=== PATIENT | male | born 1980 | race African-American/Black ===

== ENCOUNTER 2021-05-13 15:28 | Inpatient (IN) | payer MEDICARE, MEDICAID ==
[~2021-05-13] VITALS: Ht 185.4 cm; Wt 103.0 kg
[2021-05-13 16:23] LABS: BASOPHILS % 0.5 % (0.0-2.0); EOSINOPHILS % 3.1 % (0.0-5.0); HEMATOCRIT. 39.4 % (42.0-52.0); HEMOGLOBIN. 13.2 g/dL (14.0-18.0); LYMPHOCYTES % 18.4 % (20.0-50.0); MEAN CORPUSCULAR HEMOGLOBIN 28.2 pg (28.0-32.0); MEAN PLATELET VOLUME 9.1 fl (7.4-10.4); PLATELET 267 x1000/uL (130-400); RED BLOOD CELL COUNT 4.69 mill/uL (4.7-6.1); RED CELL DISTRIBUTION WIDTH 13.7 % (11.6-14.6)
[2021-05-13 16:28] LABS: CHLORIDE 100 mEq/L (98-107)
[2021-05-13] MEDS ORDERED: ASPIRIN 81MG TABLET PO NR (18:15)
[2021-05-13] MEDS ORDERED: INSULIN GLARGINE UD 100 UNITS/ML SYR SUBCUT NR (19:00)
[2021-05-13 21:10] VITALS: BP 146/104
[2021-05-13] MEDS ORDERED: DEXTROSE 50% WATER 50ML SYRINGE IV PRN (22:15)
[2021-05-13] MEDS ORDERED: MAGNESIUM/ALUMINUM HYDROXIDE/SIMETHICONE 30ML UDC PO PRN (22:15)
[2021-05-13] MEDS ORDERED: ACETAMINOPHEN 325MG TABLET PO PRN (22:15)
[2021-05-13] MEDS ORDERED: ONDANSETRON HCL 4MG/2ML INJ IV PRN (22:15)
[2021-05-13] MEDS ORDERED: CLONIDINE 0.1MG TABLET PO PRN (22:15)
[2021-05-13] MEDS ORDERED: GUAIFENESIN 200MG/10ML SUGAR FREE UDC PO PRN (22:15)
[2021-05-13 22:28] VITALS: BP 146/104
[2021-05-14] VITALS: BP 159/97
[2021-05-14] MEDS ORDERED: SODIUM CHLORIDE 0.9% INJ 3ML FLUSH IVF SCH (06:00)
[2021-05-14] MEDS: BLOOD SUGAR DIAGNOSTIC STRIP TEST SCH ×4 (06:17→21:36)
[2021-05-14] MEDS ORDERED: METFORMIN HCL 500MG TABLET PO SCH (07:50)
[2021-05-14] MEDS: INSULIN LISPRO 100 UNITS/ML SUBCUT SCH ×4 (07:50→21:36)
[2021-05-14 08:00] VITALS: BP 154/90
[2021-05-14] MEDS: INSULIN GLARGINE UD 100 UNITS/ML SYR SUBCUT SCH ×2 (10:00→21:35)
[2021-05-14] MEDS: ASPIRIN 325MG EC TABLET PO SCH (11:58)
[2021-05-14] MEDS: LISINOPRIL 40MG TABLET PO SCH (11:59)
[2021-05-14] MEDS: AMLODIPINE 10MG TABLET PO SCH (11:59)
[2021-05-14] MEDS: ATORVASTATIN CALCIUM 40MG TABLET PO SCH (21:35)
[2021-05-15 04:00] VITALS: BP 167/109
[2021-05-15] MEDS: CLONIDINE 0.1MG TABLET PO PRN ×2 (04:34→21:49)
[2021-05-15] MEDS: ACETAMINOPHEN 325MG TABLET PO PRN ×2 (04:35→17:21)
[2021-05-15] MEDS: BLOOD SUGAR DIAGNOSTIC STRIP TEST SCH ×4 (06:28→20:22)
[2021-05-15] MEDS: INSULIN LISPRO 100 UNITS/ML SUBCUT SCH ×4 (07:50→21:50)
[2021-05-15] MEDS: ASPIRIN 325MG EC TABLET PO SCH (09:27)
[2021-05-15] MEDS: AMLODIPINE 10MG TABLET PO SCH (09:28)
[2021-05-15] MEDS: LISINOPRIL 40MG TABLET PO SCH (09:28)
[2021-05-15] MEDS: INSULIN GLARGINE UD 100 UNITS/ML SYR SUBCUT SCH ×2 (10:00→21:50)
[2021-05-15 12:00] VITALS: BP 152/74
[2021-05-15 16:00] VITALS: BP 155/76
[2021-05-15 20:00] VITALS: BP 165/72
[2021-05-15] MEDS ORDERED: RISPERIDONE 1MG TABLET PO SCH (21:00)
[2021-05-15] MEDS: ATORVASTATIN CALCIUM 40MG TABLET PO SCH (21:49)
[2021-05-15] MEDS: HYDROXYZINE 10 MG TABLET PO SCH (21:53)
[2021-05-16] MEDS: BLOOD SUGAR DIAGNOSTIC STRIP TEST SCH ×4 (07:20→22:13)
[2021-05-16] MEDS: INSULIN LISPRO 100 UNITS/ML SUBCUT SCH ×4 (07:50→22:12)
[2021-05-16] MEDS: INSULIN GLARGINE UD 100 UNITS/ML SYR SUBCUT SCH ×2 (10:00→22:00)
[2021-05-16] MEDS: LISINOPRIL 40MG TABLET PO SCH (10:03)
[2021-05-16] MEDS: AMLODIPINE 10MG TABLET PO SCH (10:03)
[2021-05-16] MEDS: ASPIRIN 325MG EC TABLET PO SCH (10:03)
[2021-05-16] MEDS: HYDROXYZINE 10 MG TABLET PO SCH (22:03)
[2021-05-16] MEDS: ATORVASTATIN CALCIUM 40MG TABLET PO SCH (22:03)
[2021-05-17 04:00] VITALS: BP 172/92
[2021-05-17] MEDS: CLONIDINE 0.1MG TABLET PO PRN (04:35)
[2021-05-17] MEDS: BLOOD SUGAR DIAGNOSTIC STRIP TEST SCH ×4 (06:37→21:19)
[2021-05-17] MEDS: ARIPIPRAZOLE 2MG TABLET PO SCH ×2 (09:00→09:18)
[2021-05-17] MEDS: DIVALPROEX SODIUM 250MG ER TABLET PO SCH ×3 (09:00→21:25)
[2021-05-17] MEDS: ASPIRIN 325MG EC TABLET PO SCH (09:18)
[2021-05-17] MEDS: LISINOPRIL 40MG TABLET PO SCH (09:20)
[2021-05-17] MEDS: INSULIN LISPRO 100 UNITS/ML SUBCUT SCH ×4 (09:21→21:24)
[2021-05-17] MEDS: AMLODIPINE 10MG TABLET PO SCH (09:21)
[2021-05-17] MEDS: INSULIN GLARGINE UD 100 UNITS/ML SYR SUBCUT SCH ×2 (09:22→21:33)
[2021-05-17 12:00] VITALS: BP 158/98
[2021-05-17] MEDS ORDERED: HALOPERIDOL LACTATE 5MG/ML VIAL IM PRN (19:00)
[2021-05-17] MEDS: HYDROXYZINE 10 MG TABLET PO SCH (21:00)
[2021-05-17] MEDS: ATORVASTATIN CALCIUM 40MG TABLET PO SCH (21:25)
[2021-05-18] MEDS: BLOOD SUGAR DIAGNOSTIC STRIP TEST SCH ×4 (05:16→21:00)
[2021-05-18] MEDS: INSULIN LISPRO 100 UNITS/ML SUBCUT SCH ×4 (05:16→21:00)
[2021-05-18] MEDS: ACETAMINOPHEN 325MG TABLET PO PRN (05:17)
[2021-05-18 08:00] VITALS: BP 153/103
[2021-05-18] MEDS: LISINOPRIL 40MG TABLET PO SCH (09:00)
[2021-05-18] MEDS: ASPIRIN 325MG EC TABLET PO SCH (09:00)
[2021-05-18] MEDS: ARIPIPRAZOLE 2MG TABLET PO SCH (09:00)
[2021-05-18] MEDS: DIVALPROEX SODIUM 250MG ER TABLET PO SCH ×2 (09:00→21:00)
[2021-05-18] MEDS: AMLODIPINE 10MG TABLET PO SCH (09:00)
[2021-05-18] MEDS: INSULIN GLARGINE UD 100 UNITS/ML SYR SUBCUT SCH ×2 (11:20→22:00)
[2021-05-18 12:00] VITALS: BP 168/102
[2021-05-18] MEDS: CLONIDINE 0.1MG TABLET PO PRN (14:23)
[2021-05-18 20:00] VITALS: BP 133/78
[2021-05-18] MEDS: HYDROXYZINE 10 MG TABLET PO SCH (21:00)
[2021-05-18] MEDS: ATORVASTATIN CALCIUM 40MG TABLET PO SCH (21:00)
[2021-05-19] MEDS: BLOOD SUGAR DIAGNOSTIC STRIP TEST SCH ×2 (06:08→12:20)
[2021-05-19] MEDS: INSULIN LISPRO 100 UNITS/ML SUBCUT SCH ×2 (06:13→12:50)
[2021-05-19] MEDS: DIVALPROEX SODIUM 250MG ER TABLET PO SCH ×2 (09:00→10:07)
[2021-05-19] MEDS: INSULIN GLARGINE UD 100 UNITS/ML SYR SUBCUT SCH (10:00)
[2021-05-19] MEDS: ASPIRIN 325MG EC TABLET PO SCH (10:07)
[2021-05-19] MEDS: LISINOPRIL 40MG TABLET PO SCH (10:08)
[2021-05-19] MEDS: ARIPIPRAZOLE 2MG TABLET PO SCH (10:08)
[2021-05-19] MEDS: AMLODIPINE 10MG TABLET PO SCH (10:08)
[2021-05-19 14:23] VITALS: BP 146/89
== END 2021-05-19 14:32 | disposition home or self-care (01) | DRG 66 ==
LOC: ER 15:28 → EDBEDREQ 18:44 → EDBEDREQSVC 18:44 → EDBEDREQTM 18:44 → ENRESERV 20:30 → 6WST 21:50 → 6EST 05-17 16:09
PROVIDERS: ADMIT Internal Medicine; ATTEND Internal Medicine
DX: I63.9 Cerebral infarction, unspecified (principal); I11.0 Hypertensive heart disease with heart failure; G83.24 Monoplegia of upper limb affecting left nondominant side; I50.9 Heart failure, unspecified; Z20.822 Contact with and (suspected) exposure to COVID-19; E11.65 Type 2 diabetes mellitus with hyperglycemia; R29.810 Facial weakness; F31.9 Bipolar disorder, unspecified; Z86.73 Personal history of transient ischemic attack (TIA), and cerebral infarction without residual deficits; Z59.00 Homelessness unspecified; Z59.01 Sheltered homelessness; Z88.8 Allergy status to other drugs, medicaments and biological substances
CPT/HCPCS: 36415; 80048; 80061; 82962; 83036; 85025; 87426; 92523; 93005; 93880; 97162; 97165; 99285; J1815